=== PATIENT | male | born 1945 | race Caucasian/White ===

== ENCOUNTER 2020-07-20 07:51 | Day surgery (SDC) | payer MEDICARE ==
[2020-07-20] MEDS ORDERED: fentaNYL 100 MCG/2 ML SDV IV ONE (07:52)
[2020-07-20] MEDS ORDERED: Midazolam 1 MG/ML 2 ML SDV IV ONE (07:52)
[2020-07-20] MEDS ORDERED: Sodium Chloride 0.9% 10 ML Syringe FLUSH PRN (08:00)
[2020-07-20] MEDS ORDERED: Lactated Ringers 1,000 ML IV PRN (08:00)
[2020-07-20] MEDS ORDERED: acetaZOLAMIDE 500 MG Cap.ER PO ONE (10:00)
--- NOTE | 2020-07-21 10:30 | OR ---
DATE OF OPERATION: 07/20/2020 SURGEON: Olya Moreno MD PREOPERATIVE DIAGNOSIS: Visually significant cataract, right eye. POSTOPERATIVE DIAGNOSIS: Visually significant cataract, right eye. PROCEDURES PERFORMED: Phacoemulsification with intraocular lens placement, right eye. ASSISTANTS: None. ANESTHESIA: Local with sedation. COMPLICATIONS: None. BLOOD LOSS: None. IMPLANTS: Zack ACU0T0 24.0 diopter lens implanted. CDE: DESCRIPTION OF PROCEDURE: After risks and benefits were reviewed with the patient, consent was obtained in the preoperative area, and the operative eye was marked with a surgical pen. In the preoperative area, a pledget was used to dilate the pupil consisting of a mixture of phenylephrine 10%, cyclopentolate 2%, moxifloxacin 0.5%, and bupivacaine 0.75%. The patient was taken to the operating room, where a time-out was performed, and the patient was placed under monitored anesthesia care. Topical tetracaine was used for anesthesia. The operative eye was prepped and draped for ophthalmic surgery, and the microscope was brought into position and focused. A paracentesis incision was made, followed by injection of preservative-free 1% lidocaine into the anterior chamber, followed by injection of Viscoat into the anterior chamber. A microkeratome blade was used to make a corneal limbal incision temporally. A cystotome was used to make the beginning of the capsulorrhexis, which was carried around 360 degrees in a curvilinear fashion using Utrata forceps. A Jean cannula with BSS was used to hydrodissect and hydrodelineate the nucleus. The nucleus was removed in a divide and conquer manner using phacoemulsification. Irrigation and aspiration were used to remove the remaining cortical material. Provisc was used to inflate the capsular bag, and a pre-loaded Zack ACU0T0 24.0 diopter lens, serial number [id number] was injected into the capsular bag. A Sinskey hook was used to position and center the lens. Next, irrigation and aspiration was used to remove any remaining viscoelastic and cortical material from the anterior chamber. BSS on a cannula was used to inflate the anterior chamber and hydrate the wound. The wound was checked and found to be watertight. 1 mg of Moxifloxacin was injected into the anterior chamber. Drapes were removed and the eye was cleaned. A drop of brimonidine 0.2% and a drop of TobraDex was placed. The eye was shielded, and the patient was taken to the recovery room in stable condition. /[id number] TIAN/INES
== END 2020-07-20 10:15 | disposition home or self-care (01) ==
LOC: FB.SDS 07:51
PROVIDERS: ATTEND Ophthalmology
DX: H25.13 Age-related nuclear cataract, bilateral (principal); H35.362 Drusen (degenerative) of macula, left eye; H35.033 Hypertensive retinopathy, bilateral; H02.831 Dermatochalasis of right upper eyelid; H02.834 Dermatochalasis of left upper eyelid; H52.223 Regular astigmatism, bilateral; I25.10 Atherosclerotic heart disease of native coronary artery without angina pectoris; J44.9 Chronic obstructive pulmonary disease, unspecified; Z79.899 Other long term (current) drug therapy; I10 Essential (primary) hypertension
CPT/HCPCS: 00142-QZ; A9270-GY; J2250; J3010; V2632

== ENCOUNTER → 2020-08-03 | Day surgery (SDC) | payer MEDICARE ==
[~2020-08-03] MED LIST: Lactated Ringers 1,000 ML IV PRN; Midazolam 1 MG/ML 2 ML SDV IV ONE; Sodium Chloride 0.9% 10 ML Syringe FLUSH PRN; acetaZOLAMIDE 500 MG Cap.ER PO ONE; fentaNYL 100 MCG/2 ML SDV IV ONE
--- NOTE | 2020-08-04 10:07 | OR ---
DATE OF OPERATION: 08/03/2020 SURGEON: Olya Moreno MD PREOPERATIVE DIAGNOSIS: Visually significant cataract, left eye. POSTOPERATIVE DIAGNOSIS: Visually significant cataract, left eye. PROCEDURES PERFORMED: Phacoemulsification with intraocular lens placement, left eye. ASSISTANTS: None. ANESTHESIA: Local with sedation. COMPLICATIONS: None. BLOOD LOSS: None. IMPLANTS: Zack ACU0T0 25.0 Diopter lens implanted. CDE: 11.34. DESCRIPTION OF PROCEDURE: After risks and benefits were reviewed with the patient, consent was obtained in the preoperative area, and the operative eye was marked with a surgical pen. In the preoperative area, a pledget was used to dilate the pupil consisting of a mixture of phenylephrine 10%, cyclopentolate 2%, moxifloxacin 0.5%, and bupivacaine 0.75%. The patient was taken to the operating room, where a time-out was performed, and the patient was placed under monitored anesthesia care. Topical tetracaine was used for anesthesia. The operative eye was prepped and draped for ophthalmic surgery, and the microscope was brought into position and focused. A paracentesis incision was made, followed by injection of preservative-free 1% lidocaine into the anterior chamber, followed by injection of Viscoat into the anterior chamber. A microkeratome blade was used to make a corneal limbal incision temporally. A cystotome was used to make the beginning of the capsulorrhexis, which was carried around 360 degrees in a curvilinear fashion using Utrata forceps. A Jean cannula with BSS was used to hydrodissect and hydrodelineate the nucleus. The nucleus was removed in a divide and conquer manner using phacoemulsification. Irrigation and aspiration were used to remove the remaining cortical material. Provisc was used to inflate the capsular bag, and a pre-loaded Zack ACU0T0 25.0 diopter lens, serial number [id number] was injected into the capsular bag. A Sinskey hook was used to position and center the lens. Next, irrigation and aspiration was used to remove any remaining viscoelastic and cortical material from the anterior chamber. BSS on a cannula was used to inflate the anterior chamber and hydrate the wound. The wound was checked and found to be watertight. 1 mg of Moxifloxacin was injected into the anterior chamber. Drapes were removed and the eye was cleaned. A drop of brimonidine 0.2% and a drop of TobraDex was placed. The eye was shielded, and the patient was taken to the recovery room in stable condition. /[id number] TIAN/INES
== END ==
LOC: FB.SDS 10:13
PROVIDERS: ATTEND Ophthalmology
DX: H25.13 Age-related nuclear cataract, bilateral (principal); H35.362 Drusen (degenerative) of macula, left eye; H35.033 Hypertensive retinopathy, bilateral; H02.831 Dermatochalasis of right upper eyelid; H02.834 Dermatochalasis of left upper eyelid; H52.223 Regular astigmatism, bilateral; I25.10 Atherosclerotic heart disease of native coronary artery without angina pectoris; I10 Essential (primary) hypertension; J44.9 Chronic obstructive pulmonary disease, unspecified; Z79.82 Long term (current) use of aspirin; Z79.899 Other long term (current) drug therapy
CPT/HCPCS: 00142; 66984; A9270; J2250; J3010; V2632

== ENCOUNTER 2021-03-16 22:26 | Emergency (ER) | payer MEDICARE, SELFPAY ==
--- NOTE | 2021-03-16 22:58 | EDM.PDOC ---
ED HPI GENERAL MEDICAL PROBLEM - General Chief Complaint: Flank Pain Stated Complaint: kidney stone Time Seen by Provider: 03/16/21 22:50 Source of Information: Reports: Patient History Limitations: Reports: No Limitations - History of Present Illness INITIAL COMMENTS - FREE TEXT/NARRATIVE: 75-year-old male who reports at approximately 5:30 PM tonight he developed acute onset of sharp severe pain in his left flank area and it then moved to his left mid back and it did not appear to have any inciting event. There were no exacerbating or alleviating factors. No nausea or vomiting. The pain was an 8/10. Had no antecedent problems. He had been eating and drinking normally. In fact, he reports that he had just eaten prior to this. He states the pain was very similar to when he had a kidney stone on the right side about 8-9 years ago. He reports he had some leftover hydrocodone from that and he took hydrocodone and at approximately 9:[address] to [address] over here as he was being driven by his sons, the pain went away. Now, he reports the pain as a 0/10 and he has since. The urine provided by him did appear to be a little dark and red tinged. He had had no fevers or chills. No dysuria or hematuria prior to this. Normal bowel movements. There are no other associated signs or symptoms. There are no other modifying factors. 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(s) (Hydrocodone) flank Pain Score (Numeric/FACES): 0 - Related Data Allergies Allergy/AdvReac Type Severity Reaction Status Date / Time No Known Allergies Allergy Verified 03/16/21 22:52 Home Meds: Home Meds Albuterol [Ventolin HFA] 2 puff INH Q4H PRN 07/16/20 [History] Aspirin 81 mg PO DAILY 07/16/20 [History] Clopidogrel [Plavix] 75 mg PO DAILY 07/16/20 [History] Losartan [Cozaar] 25 mg PO BID 07/16/20 [History] Rosuvastatin [Crestor] 20 mg PO DAILY 07/16/20 [History] Past Medical History HEENT History: Reports: Cataract, Impaired Vision Cardiovascular History: Reports: Heart Valve Replacement (Bovine), High Cholesterol, Hypertension, Other (See Below) (LBBB) Respiratory History: Reports: COPD Genitourinary History: Reports: Renal Calculus Dermatologic History: Reports: Venous Stasis Dermatitis - Past Surgical History HEENT Surgical History: Reports: Cataract Surgery Cardiovascular Surgical History: Reports: Coronary Artery Stent, Percutaneous Transluminal Angioplasty, Valve Replacement, Other (See Below) Other Cardiovascular Surgeries/Procedures: AORTIC VALVE REPLACEMENT - BIOPROSTHETIC Musculoskeletal Surgical History: Reports: Arthroscopic Knee (Right knee) Social & Family History - Tobacco Use Tobacco Use Status *Q: Former Tobacco User (Quit in 2015 but was a heavy smoker prior to this.) - Caffeine Use Caffeine Use: Reports: Soda - Alcohol Use Alcohol Use History: No - Living Situation & Occupation Occupation: Retired (July 2020 from [employer]) ED ROS GENERAL - Review of Systems Review Of Systems: See Below Constitutional: Denies: Fever, Chills HEENT: Reports: Other (Nasal congestion). Denies: Throat Pain Respiratory: Denies: Shortness of Breath, Cough Cardiovascular: Denies: Chest Pain, Palpitations GI/Abdominal: Denies: Nausea, Vomiting : Reports: Flank Pain (Left) Musculoskeletal: Reports: Back Pain (left mid back) Skin: Denies: Diaphoresis, Rash Neurological: Denies: Dizziness, Headache Hematologic/Lymphatic: Reports: Easy Bleeding, Easy Bruising (Patient is on Plavix.) ED EXAM, GENERAL - Physical Exam Exam: See Below Exam Limited By: No Limitations General Appearance: Alert, No Apparent Distress, Obese Eye Exam: Bilateral Eye: EOMI, Normal Inspection (Sclera are anicteric) Ears: Normal External Exam, Hearing Grossly Normal Ear Exam: Bilateral Ear: Auricle Normal Nose: Normal Inspection, Normal Mucosa, No Blood Throat/Mouth: Normal Inspection, Normal Oropharynx, Normal Voice, No Airway Compromise Head: Atraumatic, Normocephalic Neck: Normal Inspection, Supple, Non-Tender, Full Range of Motion Respiratory/Chest: No Respiratory Distress, Lungs Clear, Normal Breath Sounds, No Accessory Muscle Use, Chest Non-Tender Cardiovascular: Normal Peripheral Pulses, Regular Rate, Rhythm, No Gallop Peripheral Pulses: 2+: Radial (L), Radial (R) GI/Abdominal: Normal Bowel Sounds, Soft, Non-Tender, No Mass Back Exam: Normal Inspection. No: CVA Tenderness (R), CVA Tenderness (L) Extremities: Normal Range of Motion, Non-Tender, Normal Capillary Refill Neurological: Alert, Oriented, CN II-XII Intact, Normal Cognition, No Motor/Sensory Deficits Psychiatric: Normal Affect Skin Exam: Warm, Dry, Intact, Normal Color, No Rash Course - Vital Signs Last Recorded V/S: Last Vital Signs Temp 36.6 C 03/16/21 22:35 Pulse 78 03/17/21 00:30 Resp 20 03/17/21 00:30 BP 156/77 H 03/17/21 00:30 Pulse Ox 97 03/17/21 00:30 - Orders/Labs/Meds Orders: Active Orders 24 hr Category Date Time Status Abdomen Pelvis wo Cont [CT] Stat Exams 03/16/21 23:08 Ordered Labs: Laboratory Tests 03/16/21 03/16/21 03/16/21 Range/Units 22:44 23:28 23:28 WBC 13.5 H (3.2-10.1) x10-3/uL RBC 4.27 (3.90-5.90) x10(6)uL Hgb 13.1 (12.9-17.7) g/dL Hct 40.8 (38.3-50.1) % MCV 95.6 (80.8-98.7) fL MCH 30.7 (27.0-33.3) pg MCHC 32.1 (28.7-35.3) g/dL RDW 15.5 H (12.4-15.0) % Plt Count 167 (117-477) x10(3)uL MPV 8.3 (6.7-11.0) fL Neut % (Auto) 80.9 H (40.3-71.8) % Lymph % (Auto) 13.1 L (15.8-45.3) % Crawford % (Auto) 5.6 (5.5-15.2) % Eos % (Auto) 0.1 (0.1-6.8) % Baso % (Auto) 0.3 (0.3-3.8) % Neut # (Auto) 11.0 H (1.7-6.9) x10-3/uL Lymph # (Auto) 1.8 (0.5-4.5) x10-3/uL Crawford # (Auto) 0.8 (0.0-1.2) x10-3/uL Eos # (Auto) 0.0 (0.0-0.6) x10-3/uL Baso # (Auto) 0.0 (0.0-0.3) x10-3/uL Sodium 140 (135-145) mmol/L Potassium 4.7 (3.5-5.3) mmol/L Chloride 106 (100-110) mmol/L Carbon Dioxide 24 (21-32) mmol/L BUN 15 (7-18) mg/dL Creatinine 1.7 H (0.70-1.30) mg/dL Est Cr Clr Drug Dosing 36.97 mL/min Estimated GFR (MDRD) 39 L (>60) BUN/Creatinine Ratio 8.8 L (9-20) Glucose 154 H (80-116) mg/dL Calcium 8.9 (8.6-10.2) mg/dL Urine Color Brown (YELLOW) Urine Appearance Slightly cloudy (CLEAR) Urine pH 5.0 (5.0-6.5) Ur Specific Hiko 1.025 (1.010-1.025) Urine Protein 100 H (NEGATIVE) mg/dL Urine Glucose (UA) Normal (NORMAL) mg/dL Urine Ketones Negative (NEGATIVE) mg/dL Urine Occult Blood Large H (NEGATIVE) Urine Nitrite Negative (NEGATIVE) Urine Bilirubin Small H (NEGATIVE) Urine Urobilinogen 1 H (NEGATIVE) mg/dL Ur Leukocyte Esterase Negative (NEGATIVE) Urine RBC 50-75 H (0-5) Urine WBC 0-5 (0-5) Ur Squamous Epith Cells Rare (NS,R,O) Urine Bacteria Few H (NS) - Radiology Interpretation Free Text/Narrative:: CT scan of the abdomen and pelvis shows a nonobstructing renal stone in the lower pole of the right kidney. Is colonic diverticulosis without evidence of diverticulitis. There is nonspecific bilateral inguinal lymphadenopathy. This was per the [facility] radiologist. - Re-Assessments/Exams Free Text/Narrative Re-Assessment/Exam: 03/16/21 23:45: Patient remains pain-free. He is going over to CT scan for a noncontrasted CT scan of his abdomen and pelvis. His white blood cell count 13.5. His hemoglobin is 13.1. His platelet counts 167K. sodium is 140. Potassium is 4.7. Bicarbonate was 24. BUN is 15 and creatinine is 1.7. Glucose is 154. Urinalysis has 50-75 red blood cells per high-powered field and 0-5 white blood cells per HPF. 03/17/21 00:25: CT scan of the abdomen and pelvis showed no evidence of renal stone. There was no hydronephrosis. He did have blood in his urine and signs and symptoms consistent with renal colic. I think he had a stone that he has passed. The patient's creatinine is 1.7. I informed him of this and he will need follow-up with his primary doctor in regard to this. His blood pressure is much improved from his initial blood pressure reading. He apparently had stopped taking part of his blood pressure medications. He was advised to take his blood pressure medicines as prescribed by his doctor. He is stable for discharge at this point and precautions and reasons for return to the emergency department were discussed with the patient while he was in the emergency department and were detailing the patient's discharge instructions. Departure - Departure Time of Disposition: 00:33 Disposition: Home, Self-Care 01 Condition: Good Clinical Impression: Renal colic on left side, Renal insufficiency - Discharge Information Instructions: Renal Colic, [id number], Flank Pain, Adult, [id number] Referrals: David Pedraza, [Primary Care Provider] - Forms: ED Department Discharge Additional Instructions: Your blood tests were reassuring except for an elevated creatinine at 1.7. This means that your kidneys are not working as well as they haven't in the past. This is something that he will need to follow-up with your primary doctor about. Your urine test did show evidence of blood The there was no evidence of infection. The CT scan of your abdomen and pelvis showed no blocking kidney stones. He did have a stone in your right kidney but you may have had a stone on the left side but it has passed.you should increase your fluid intake. Follow-up with your primary doctor. Back to the emergency department for marked increase in pain, fever, inability to urinate or any other concerning signs or symptoms. Sepsis Event Note (ED) - Focused Exam Vital Signs: Vital Signs Temp Pulse Resp BP Pulse Ox 03/17/21 00:30 78 20 156/77 H 97 03/16/21 22:35 36.6 C 86 20 199/93 H 93 L - My Orders Last 24 Hours: My Active Orders 03/16/21 23:08 Abdomen Pelvis wo Cont [CT] Stat - Assessment/Plan Last 24 Hours: My Active Orders 03/16/21 23:08 Abdomen Pelvis wo Cont [CT] Stat
== END 2021-03-17 00:25 | disposition home or self-care (01) ==
LOC: FB.ED 22:26
DX: N23 Unspecified renal colic (principal); N28.9 Disorder of kidney and ureter, unspecified; J44.9 Chronic obstructive pulmonary disease, unspecified; Z79.82 Long term (current) use of aspirin; Z79.02 Long term (current) use of antithrombotics/antiplatelets; Z79.899 Other long term (current) drug therapy; Z87.891 Personal history of nicotine dependence
CPT/HCPCS: 36415; 74176; 80048; 81001; 85025; 99284-25

== ENCOUNTER 2021-11-20 16:15 | Inpatient (IN) | payer MEDICARE, OTHER, SELFPAY ==
[2021-11-20 16:59] LABS: ESTIMATED GFR 44 mL/min (>60)
[2021-11-20] MEDS ORDERED: Acetaminophen 500 MG Tab PO ONE (19:10)
[2021-11-20] MEDS ORDERED: Albuterol/Ipratropium 3.0-0.5 MG/3 ML Neb Soln NEB ONE (19:14)
[2021-11-20] MEDS ORDERED: Albuterol/Ipratropium 3.0-0.5 MG/3 ML Neb Soln ONE (19:15)
[2021-11-20] MEDS: Piperacillin/Tazobactam 4.5 GM in Sodium Chloride 0.9% 100 ML IV SCH (19:17)
[2021-11-20] MEDS ORDERED: Albuterol/Ipratropium 3.0-0.5 MG/3 ML Neb Soln NEB PRN (19:25)
[2021-11-20] MEDS ORDERED: Ondansetron 4 MG/2 ML SDV IV PRN (19:25)
[2021-11-20] MEDS: Sodium Chloride 0.9% 1,000 ML IV SCH (19:35)
[2021-11-20] MEDS ORDERED: Albuterol 8 GM Inhaler INH PRN (19:35)
[2021-11-20] MEDS: Enoxaparin 40 MG/0.4 ML Syringe SUBCUT SCH (21:04)
[2021-11-20] MEDS: Losartan 25 MG Tab PO SCH (22:52)
[2021-11-21] MEDS: Piperacillin/Tazobactam 4.5 GM in Sodium Chloride 0.9% 100 ML IV SCH ×4 (01:41→19:15)
[2021-11-21] MEDS: Acetaminophen 325 MG Tab PO PRN (04:18)
[2021-11-21] MEDS: Sodium Chloride 0.9% 1,000 ML IV SCH (06:30)
[2021-11-21 07:29] LABS: ESTIMATED GFR 38 mL/min (>60)
[2021-11-21] MEDS ORDERED: Aspirin 81 MG Tab.Chew PO SCH (09:00)
[2021-11-21] MEDS ORDERED: Rosuvastatin 20 MG Tab PO SCH (09:00)
[2021-11-21] MEDS ORDERED: Clopidogrel 75 MG Tab PO SCH (09:00)
[2021-11-21 09:08] LABS: HEMOGLOBIN A1C 5.7 % (<5.7)
[2021-11-21] MEDS: Losartan 25 MG Tab PO SCH ×2 (09:28→10:23)
[2021-11-21] MEDS: methylPREDNISolone Sodium Succinate 125 MG/2 ML SDV IVPUSH SCH ×2 (10:35→17:03)
[2021-11-21] MEDS: Enoxaparin 40 MG/0.4 ML Syringe SUBCUT SCH (20:11)
[2021-11-22] MEDS: methylPREDNISolone Sodium Succinate 125 MG/2 ML SDV IVPUSH SCH ×3 (00:22→17:36)
[2021-11-22] MEDS: Piperacillin/Tazobactam 4.5 GM in Sodium Chloride 0.9% 100 ML IV SCH ×4 (00:23→18:33)
[2021-11-22] MEDS: Sodium Chloride 0.9% 10 ML Syringe FLUSH PRN ×6 (03:10→13:13)
[2021-11-22 07:39] LABS: ESTIMATED GFR 44 mL/min (>60)
[2021-11-22] MEDS: Clopidogrel 75 MG Tab PO SCH ×2 (14:20→16:20)
[2021-11-22] MEDS: Aspirin 81 MG Tab.Chew PO SCH ×2 (14:20→16:20)
[2021-11-22] MEDS: Losartan 25 MG Tab PO SCH ×2 (14:20→16:20)
[2021-11-22] MEDS: Enoxaparin 40 MG/0.4 ML Syringe SUBCUT SCH (18:32)
[2021-11-23] MEDS: Piperacillin/Tazobactam 4.5 GM in Sodium Chloride 0.9% 100 ML IV SCH ×4 (00:56→18:46)
[2021-11-23] MEDS: Sodium Chloride 0.9% 10 ML Syringe FLUSH PRN ×5 (02:02→18:45)
[2021-11-23] MEDS: methylPREDNISolone Sodium Succinate 125 MG/2 ML SDV IVPUSH SCH ×3 (02:05→17:04)
[2021-11-23 07:27] LABS: ESTIMATED GFR 62 mL/min (>60)
[2021-11-23] MEDS: Albuterol/Ipratropium 3.0-0.5 MG/3 ML Neb Soln NEB SCH ×3 (10:13→21:14)
[2021-11-23] MEDS: Losartan 25 MG Tab PO SCH (16:48)
[2021-11-23] MEDS: Clopidogrel 75 MG Tab PO SCH (16:49)
[2021-11-23] MEDS: Aspirin 81 MG Tab.Chew PO SCH (16:49)
[2021-11-23] MEDS: Enoxaparin 40 MG/0.4 ML Syringe SUBCUT SCH (18:48)
[2021-11-24] MEDS: methylPREDNISolone Sodium Succinate 125 MG/2 ML SDV IVPUSH SCH (00:18)
[2021-11-24] MEDS: Sodium Chloride 0.9% 10 ML Syringe FLUSH PRN (00:20)
[2021-11-24] MEDS: Piperacillin/Tazobactam 4.5 GM in Sodium Chloride 0.9% 100 ML IV SCH ×2 (01:02→06:30)
[2021-11-24] MEDS: Albuterol/Ipratropium 3.0-0.5 MG/3 ML Neb Soln NEB SCH ×4 (04:43→21:23)
[2021-11-24] MEDS: predniSONE 20 MG Tab PO SCH ×2 (09:45→18:47)
[2021-11-24] MEDS: Acetaminophen 325 MG Tab PO PRN ×2 (09:54→21:27)
[2021-11-24] MEDS: Amoxicillin/Clavulanate K 875-125 MG Tab PO SCH ×2 (12:07→21:23)
[2021-11-24] MEDS: Losartan 25 MG Tab PO SCH (16:31)
[2021-11-24] MEDS: Aspirin 81 MG Tab.Chew PO SCH (16:31)
[2021-11-24] MEDS: Clopidogrel 75 MG Tab PO SCH (16:33)
[2021-11-24] MEDS: Enoxaparin 40 MG/0.4 ML Syringe SUBCUT SCH (18:47)
[2021-11-25 06:47] LABS: ESTIMATED GFR 62 mL/min (>60)
[2021-11-25] MEDS: Albuterol/Ipratropium 3.0-0.5 MG/3 ML Neb Soln NEB SCH (06:55)
[2021-11-25] MEDS: Amoxicillin/Clavulanate K 875-125 MG Tab PO SCH (08:15)
[2021-11-25] MEDS: predniSONE 20 MG Tab PO SCH (08:15)
== END 2021-11-25 12:28 | disposition home health service (06) | DRG 191 ==
LOC: FB.ED 16:15 → FB.MS 19:25
PROVIDERS: ADMIT Emergency Medicine; ATTEND Student in an Organized Health Care Education/Training Program
DX: J44.1 Chronic obstructive pulmonary disease with (acute) exacerbation (principal); L03.116 Cellulitis of left lower limb; N39.0 Urinary tract infection, site not specified; L03.115 Cellulitis of right lower limb; I25.10 Atherosclerotic heart disease of native coronary artery without angina pectoris; E66.9 Obesity, unspecified; Z51.5 Encounter for palliative care; R82.71 Bacteriuria; R62.7 Adult failure to thrive; B35.1 Tinea unguium; E78.5 Hyperlipidemia, unspecified; Z20.822 Contact with and (suspected) exposure to COVID-19; R79.1 Abnormal coagulation profile; I12.9 Hypertensive chronic kidney disease with stage 1 through stage 4 chronic kidney disease, or unspecified chronic kidney disease; N18.9 Chronic kidney disease, unspecified; Z79.52 Long term (current) use of systemic steroids; Z68.30 Body mass index [BMI] 30.0-30.9, adult; Z79.01 Long term (current) use of anticoagulants; Z87.442 Personal history of urinary calculi; Z98.42 Cataract extraction status, left eye; Z95.2 Presence of prosthetic heart valve; Z98.41 Cataract extraction status, right eye; Z90.89 Acquired absence of other organs; Z95.5 Presence of coronary angioplasty implant and graft; E78.00 Pure hypercholesterolemia, unspecified; Z85.118 Personal history of other malignant neoplasm of bronchus and lung; Z79.02 Long term (current) use of antithrombotics/antiplatelets; Z98.890 Other specified postprocedural states; Z79.82 Long term (current) use of aspirin; Z79.899 Other long term (current) drug therapy
CPT/HCPCS: 36415; 71045; 80048; 80053; 81001; 82947; 83036; 83605; 83880; 84484; 85025; 85379; 85610; 85730; 86140; 87040; 87086; 93005; 94640; 97161-GP; 97165-GO; A9270-GY; J1650; J2543; J2930; J3490; J7030; J7512; J7620; U0002

== ENCOUNTER 2022-07-17 15:27 | Inpatient (IN) | payer MEDICARE, OTHER ==
[2022-07-17 16:26] LABS: ESTIMATED GFR 62 mL/min (>60)
[2022-07-17] MEDS: Piperacillin/Tazobactam 4.5 GM in Sodium Chloride 0.9% 100 ML IV SCH ×2 (16:35→22:40)
[2022-07-17] MEDS ORDERED: Iopamidol 755 Mg/ML 100 ML Bottle IV ONE (17:57)
[2022-07-17] MEDS ORDERED: Ondansetron 4 MG/2 ML SDV IV PRN (18:58)
[2022-07-17] MEDS ORDERED: Albuterol 8 GM Inhaler INH PRN (19:52)
[2022-07-17] MEDS ORDERED: Rosuvastatin 20 MG Tab PO STA (19:55)
[2022-07-17] MEDS ORDERED: Aspirin 81 MG Tab.Chew PO STA (19:55)
[2022-07-17] MEDS ORDERED: Clopidogrel 75 MG Tab PO ONE (19:55)
[2022-07-17] MEDS ORDERED: Hydrochlorothiazide 25 MG Tab PO STA (19:55)
[2022-07-17] MEDS ORDERED: Clopidogrel 75 MG Tab ONE (22:23)
[2022-07-17] MEDS ORDERED: Hydrochlorothiazide 25 MG Tab ONE (22:23)
[2022-07-17] MEDS ORDERED: Aspirin 81 MG Tab.Chew ONE (22:23)
[2022-07-17] MEDS ORDERED: Enoxaparin 40 MG/0.4 ML Syringe ONE (22:24)
[2022-07-17] MEDS: Enoxaparin 40 MG/0.4 ML Syringe SUBCUT SCH ×2 (22:37→22:43)
[2022-07-17] MEDS: Losartan 25 MG Tab PO SCH (22:39)
[2022-07-17] MEDS: Acetaminophen/HYDROcodone 325-5 MG Tab PO PRN (22:51)
[2022-07-17] MEDS: Sodium Chloride 0.9% 10 ML Syringe FLUSH PRN (23:10)
[2022-07-18] MEDS: Piperacillin/Tazobactam 4.5 GM in Sodium Chloride 0.9% 100 ML IV SCH ×2 (03:46→09:57)
[2022-07-18] MEDS: Sodium Chloride 0.9% 10 ML Syringe FLUSH PRN (04:25)
[2022-07-18 07:20] LABS: ESTIMATED GFR 57 mL/min (>60)
[2022-07-18] MEDS ORDERED: Furosemide 40 MG Tab PO SCH (09:00)
[2022-07-18] MEDS: Losartan 25 MG Tab PO SCH ×2 (10:38→21:44)
[2022-07-18] MEDS: Acetaminophen/HYDROcodone 325-5 MG Tab PO PRN (10:40)
[2022-07-18] MEDS ORDERED: Furosemide 20 MG/2 ML VIAL IVPUSH ONE (11:00)
[2022-07-18] MEDS ORDERED: VANCOmycin 2 GM/400 ML 2 GM in Premix Bag 1 BAG IV ONE (12:00)
[2022-07-18] MEDS: metroNIDAZOLE 500 MG Tab PO SCH ×2 (12:59→21:44)
[2022-07-18] MEDS: Hydrochlorothiazide 25 MG Tab PO SCH (15:10)
[2022-07-18] MEDS: Furosemide 40 MG/4 ML VIAL IVPUSH SCH (15:10)
[2022-07-18] MEDS: Aspirin 81 MG Tab.Chew PO SCH (15:10)
[2022-07-18] MEDS: Clopidogrel 75 MG Tab PO SCH (15:10)
[2022-07-18] MEDS: Rosuvastatin 20 MG Tab PO SCH (15:10)
[2022-07-18] MEDS: Enoxaparin 40 MG/0.4 ML Syringe SUBCUT SCH (18:05)
[2022-07-18] MEDS: Saccharomyces Boulardii (Probiotic) 250 MG Cap PO SCH (21:48)
[2022-07-19 06:57] LABS: ESTIMATED GFR 41 mL/min (>60)
[2022-07-19] MEDS: Furosemide 40 MG/4 ML VIAL IVPUSH SCH (08:36)
[2022-07-19] MEDS: Acetaminophen/HYDROcodone 325-5 MG Tab PO PRN ×3 (08:36→20:39)
[2022-07-19] MEDS: Saccharomyces Boulardii (Probiotic) 250 MG Cap PO SCH ×2 (08:36→20:38)
[2022-07-19] MEDS: metroNIDAZOLE 500 MG Tab PO SCH ×2 (08:36→20:37)
[2022-07-19] MEDS: Losartan 25 MG Tab PO SCH ×2 (08:36→20:37)
[2022-07-19] MEDS: Sodium Chloride 0.9% 10 ML Syringe FLUSH PRN ×2 (08:37→14:39)
[2022-07-19] MEDS: Furosemide 20 MG/2 ML VIAL IVPUSH SCH (14:39)
[2022-07-19] MEDS: Hydrochlorothiazide 25 MG Tab PO SCH (17:27)
[2022-07-19] MEDS: Enoxaparin 40 MG/0.4 ML Syringe SUBCUT SCH ×2 (17:27→20:31)
[2022-07-19] MEDS: Aspirin 81 MG Tab.Chew PO SCH (17:27)
[2022-07-19] MEDS: Rosuvastatin 20 MG Tab PO SCH (17:27)
[2022-07-19] MEDS: Clopidogrel 75 MG Tab PO SCH (17:27)
[2022-07-19] MEDS ORDERED: VANCOmycin 1.25 GM/250 ML 250 ML IV SCH (21:00)
[2022-07-20 06:27] LABS: ESTIMATED GFR 38 mL/min (>60)
[2022-07-20] MEDS: metroNIDAZOLE 500 MG Tab PO SCH (08:28)
[2022-07-20] MEDS: Sodium Chloride 0.9% 10 ML Syringe FLUSH PRN (08:29)
[2022-07-20] MEDS: Saccharomyces Boulardii (Probiotic) 250 MG Cap PO SCH ×2 (08:29→20:31)
[2022-07-20] MEDS ORDERED: Potassium Chloride 20 MEQ Tab.ER PO ONE (09:16)
[2022-07-20] MEDS ORDERED: Zolpidem 5 MG Tab PO PRN (09:17)
[2022-07-20] MEDS: Losartan 25 MG Tab PO SCH ×2 (10:16→20:30)
[2022-07-20] MEDS: Furosemide 20 MG/2 ML VIAL IVPUSH SCH (10:17)
[2022-07-20] MEDS: Amoxicillin/Clavulanate K 875-125 MG Tab PO SCH ×2 (10:18→20:29)
[2022-07-20] MEDS: Doxycycline 100 MG Tab PO SCH ×2 (10:18→20:31)
[2022-07-20] MEDS: Acetaminophen/HYDROcodone 325-5 MG Tab PO PRN ×2 (11:39→20:29)
[2022-07-20] MEDS: Aspirin 81 MG Tab.Chew PO SCH (16:28)
[2022-07-20] MEDS: Hydrochlorothiazide 25 MG Tab PO SCH (16:28)
[2022-07-20] MEDS: Rosuvastatin 20 MG Tab PO SCH (16:29)
[2022-07-20] MEDS: Clopidogrel 75 MG Tab PO SCH (16:30)
[2022-07-20] MEDS: Furosemide 20 MG Tab PO SCH (16:41)
[2022-07-20] MEDS: Enoxaparin 40 MG/0.4 ML Syringe SUBCUT SCH (18:28)
[2022-07-21 07:03] LABS: ESTIMATED GFR 48 mL/min (>60)
[2022-07-21] MEDS: Furosemide 20 MG Tab PO SCH (08:16)
[2022-07-21] MEDS: Losartan 25 MG Tab PO SCH (08:17)
[2022-07-21] MEDS: Doxycycline 100 MG Tab PO SCH (08:17)
[2022-07-21] MEDS: Saccharomyces Boulardii (Probiotic) 250 MG Cap PO SCH (08:18)
[2022-07-21] MEDS: Acetaminophen/HYDROcodone 325-5 MG Tab PO PRN (08:20)
[2022-07-21] MEDS: Amoxicillin/Clavulanate K 875-125 MG Tab PO SCH (08:44)
== END 2022-07-21 13:05 | disposition home health service (06) | DRG 603 ==
LOC: FB.ED 15:27 → FB.MS 18:53
PROVIDERS: ADMIT Family Medicine; ATTEND Student in an Organized Health Care Education/Training Program
DX: L03.116 Cellulitis of left lower limb (principal); N17.9 Acute kidney failure, unspecified; L03.115 Cellulitis of right lower limb; I89.0 Lymphedema, not elsewhere classified; N18.31 Chronic kidney disease, stage 3a; D63.1 Anemia in chronic kidney disease; I87.2 Venous insufficiency (chronic) (peripheral); J44.9 Chronic obstructive pulmonary disease, unspecified; E78.5 Hyperlipidemia, unspecified; B35.1 Tinea unguium; I10 Essential (primary) hypertension; I12.9 Hypertensive chronic kidney disease with stage 1 through stage 4 chronic kidney disease, or unspecified chronic kidney disease; I44.7 Left bundle-branch block, unspecified; I25.10 Atherosclerotic heart disease of native coronary artery without angina pectoris; E78.00 Pure hypercholesterolemia, unspecified; Z79.82 Long term (current) use of aspirin; Z79.01 Long term (current) use of anticoagulants; Z87.442 Personal history of urinary calculi; Z87.891 Personal history of nicotine dependence; Z79.899 Other long term (current) drug therapy; Z95.2 Presence of prosthetic heart valve; Z95.5 Presence of coronary angioplasty implant and graft
CPT/HCPCS: 36415; 73701-50; 80053; 83605; 85025; 86140; 87040; 87070; 99222; 99232; 99239; 99285; A9270-GY; J1650; J1940; J2543; J3370; J3490; J7050; Q9967

== ENCOUNTER 2023-01-11 08:41 | Inpatient (IN) | payer MEDICARE ==
[2023-01-11] MEDS ORDERED: Piperacillin/Tazobactam 3.375 GM in Sodium Chloride 0.9% 50 ML IV STA (10:04)
[2023-01-11] MEDS ORDERED: VANCOmycin 1 GM/200 ML 1 GM in Premix Bag 1 BAG IV ONE (10:04)
[2023-01-11 10:17] LABS: BASOPHILS ABSOLUTE AUTO 0.1 x10-3/uL (0.0-0.3); BASOPHILS PERCENT AUTO 0.5 % (0.3-3.8); EOSINOPHILS ABSOLUTE AUTO 0.1 x10-3/uL (0.0-0.6); EOSINOPHILS PERCENT AUTO 0.4 % (0.1-6.8); HEMATOCRIT 32.1 % (38.3-50.1); HEMOGLOBIN 10.2 g/dL (12.9-17.7); LYMPHOCYTES ABSOLUTE AUTO 1.3 x10-3/uL (0.5-4.5); LYMPHOCYTES PERCENT AUTO 10.1 % (15.8-45.3); MEAN CORPUSCULAR HEMOGLOBIN 28.1 pg (27.0-33.3); MEAN CORPUSCULAR HGB CONC 31.8 g/dL (28.7-35.3); MEAN CORPUSCULAR VOLUME 88.5 fL (80.8-98.7); MEAN PLATELET VOLUME 7.9 fL (6.7-11.0); MONOCYTES ABSOLUTE AUTO 0.5 x10-3/uL (0.0-1.2); PLATELET COUNT,PLT 168 x10(3)uL (117-477); RED BLOOD CELL COUNT 3.63 x10(6)uL (3.90-5.90); WHITE BLOOD CELL COUNT,WBC 12.9 x10-3/uL (3.2-10.1)
[2023-01-11 10:26] LABS: BLOOD UREA NITROGEN,BUN 19 mg/dL (7-18); BUN/CREATININE RATIO 14.6 (9-20); CARBON DIOXIDE,CO2 30 mmol/L (21-32); CHLORIDE,CL 103 mmol/L (100-110); CREATININE 1.3 mg/dL (0.70-1.30); EST CRCL DRUG DOSING (CG) 45.31 mL/min; ESTIMATED GFR 56 mL/min (>60); GLUCOSE RANDOM 120 mg/dL (80-116); POTASSIUM,K 3.9 mmol/L (3.5-5.3); SODIUM,NA 140 mmol/L (135-145)
[2023-01-11 10:32] LABS: A/G RATIO 0.7; ALANINE AMINOTRANSFERASE,ALT 17 U/L (12-36); ALBUMIN 3.3 g/dL (3.2-4.6); ALKALINE PHOSPHATASE 101 IU/L (56-112); ASPARTATE AMNIOTRANSFERASE,AST 15 IU/L (5-25); BILIRUBIN TOTAL 0.6 mg/dL (0.1-1.3); PROTEIN TOTAL,TP 8.2 g/dL (6.0-8.0)
[2023-01-11 10:34] LABS: TROPONIN I 13.7 pg/mL (4.0-60.3)
[2023-01-11 10:35] LABS: LACTIC ACID 1.9 mmol/L (0.4-2.0)
[2023-01-11] MEDS: Acetaminophen/HYDROcodone 325-5 MG Tab PO PRN ×4 (11:18→23:28)
[2023-01-11] MEDS ORDERED: VANCOmycin 1.75 GM/350 ML 1.75 GM in Premix Bag 1 BAG IV ONE (11:30)
[2023-01-11] MEDS ORDERED: Morphine 4 MG/ML VIAL IVPUSH ONE (12:42)
[2023-01-11] MEDS ORDERED: Sodium Chloride 0.9% 1,000 ML IV SCH (12:45)
[2023-01-11] MEDS ORDERED: Albuterol 8 GM Inhaler INH PRN (13:18)
[2023-01-11] MEDS ORDERED: Morphine 2 MG/ML SYRINGE IVPUSH PRN (13:20)
[2023-01-11] MEDS ORDERED: Naloxone 0.4 MG/ML SDV IVPUSH PRN (13:20)
[2023-01-11] MEDS ORDERED: Ondansetron 4 MG/2 ML SDV IVPUSH PRN (13:30)
[2023-01-11] MEDS: Rosuvastatin 20 MG Tab PO SCH (15:56)
[2023-01-11] MEDS: Aspirin 81 MG Tab.Chew PO SCH (15:56)
[2023-01-11] MEDS ORDERED: Metoprolol Succinate 25 MG Tab.ER PO SCH (16:00)
[2023-01-11] MEDS ORDERED: Furosemide 40 MG Tab PO SCH (16:00)
[2023-01-11] MEDS ORDERED: Losartan 25 MG Tab PO SCH (16:00)
[2023-01-11] MEDS: Enoxaparin 40 MG/0.4 ML Syringe SUBCUT SCH (16:14)
[2023-01-11] MEDS: Clopidogrel 75 MG Tab PO SCH (16:17)
[2023-01-11] MEDS: Sodium Chloride 0.9% 10 ML Syringe FLUSH PRN ×3 (16:37→22:02)
[2023-01-11] MEDS: Piperacillin/Tazobactam 3.375 GM in Sodium Chloride 0.9% 50 ML IV SCH ×2 (16:38→22:03)
[2023-01-11] MEDS ORDERED: Piperacillin/Tazobactam 3.375 GM in Sodium Chloride 0.9% 50 ML IV SCH (17:00)
[2023-01-11 17:19] LABS: BILIRUBIN,URINE NEGATIVE (NEGATIVE); GLUCOSE,URINE NORMAL (NORMAL); KETONES,URINE NEGATIVE (NEGATIVE); LEUKOCYTE ESTERASE,URINE NEGATIVE (NEGATIVE); NITRITE,URINE NEGATIVE (NEGATIVE); OCCULT BLOOD,URINE LARGE (NEGATIVE); PROTEIN,URINE NEGATIVE (NEGATIVE); UROBILINOGEN,URINE NORMAL (NEGATIVE)
[2023-01-11 17:21] LABS: APPEARANCE,URINE SLIGHTLY CLOUDY (CLEAR); BACTERIA,URINE OCCASIONAL (NS); COLOR,URINE YELLOW (YELLOW); RBC,URINE 30-40 (0-5); SQUAMOUS EPITHELIAL CELLS,UR OCCASIONAL (NS,R,O); WBC,URINE 0-5 (0-5)
[2023-01-11] MEDS: Ketorolac 15 MG/ML SDV IVPUSH SCH (19:58)
[2023-01-11] MEDS: Saccharomyces Boulardii (Probiotic) 250 MG Cap PO SCH (20:06)
[2023-01-11] MEDS ORDERED: Sennosides/Docusate Sodium 50-8.6 MG Tab PO PRN (21:00)
[2023-01-11] MEDS ORDERED: VANCOmycin 1.5 GM/300 ML 1.5 GM in Premix Bag 1 BAG IV SCH (22:00)
[2023-01-12] MEDS: Ketorolac 15 MG/ML SDV IVPUSH SCH ×4 (04:58→19:43)
[2023-01-12] MEDS: Piperacillin/Tazobactam 3.375 GM in Sodium Chloride 0.9% 50 ML IV SCH ×4 (05:04→22:17)
[2023-01-12] MEDS: Sodium Chloride 0.9% 10 ML Syringe FLUSH PRN ×3 (05:04→22:16)
[2023-01-12 06:44] LABS: BASOPHILS ABSOLUTE AUTO 0.1 x10-3/uL (0.0-0.3); BASOPHILS PERCENT AUTO 0.7 % (0.3-3.8); EOSINOPHILS ABSOLUTE AUTO 0.2 x10-3/uL (0.0-0.6); EOSINOPHILS PERCENT AUTO 2.1 % (0.1-6.8); HEMATOCRIT 24.6 % (38.3-50.1); LYMPHOCYTES ABSOLUTE AUTO 2.2 x10-3/uL (0.5-4.5); LYMPHOCYTES PERCENT AUTO 24.1 % (15.8-45.3); MEAN CORPUSCULAR HEMOGLOBIN 28.9 pg (27.0-33.3); MEAN CORPUSCULAR HGB CONC 32.6 g/dL (28.7-35.3); MEAN CORPUSCULAR VOLUME 88.7 fL (80.8-98.7); MEAN PLATELET VOLUME 8.2 fL (6.7-11.0); MONOCYTES ABSOLUTE AUTO 0.9 x10-3/uL (0.0-1.2); MONOCYTES PERCENT AUTO 9.9 % (5.5-15.2); NEUTROPHILS ABSOLUTE AUTO 5.8 x10-3/uL (1.7-6.9); NEUTROPHILS PERCENT AUTO 63.2 % (40.3-71.8); PLATELET COUNT,PLT 128 x10(3)uL (117-477); RED BLOOD CELL COUNT 2.77 x10(6)uL (3.90-5.90); RED CELL DISTRIBUTION WIDTH 19.8 % (12.4-15.0); WHITE BLOOD CELL COUNT,WBC 9.2 x10-3/uL (3.2-10.1)
[2023-01-12 06:48] LABS: BLOOD UREA NITROGEN,BUN 27 mg/dL (7-18); BUN/CREATININE RATIO 15.9 (9-20); CALCIUM 8.4 mg/dL (8.6-10.2); CARBON DIOXIDE,CO2 27 mmol/L (21-32); CHLORIDE,CL 103 mmol/L (100-110); CREATININE 1.7 mg/dL (0.70-1.30); EST CRCL DRUG DOSING (CG) 34.65 mL/min; ESTIMATED GFR 41 mL/min (>60); GLUCOSE RANDOM 107 mg/dL (80-116); POTASSIUM,K 3.9 mmol/L (3.5-5.3); SODIUM,NA 139 mmol/L (135-145)
[2023-01-12 07:04] LABS: C-REACTIVE PROTEIN 5.82 mg/dL (<0.33)
[2023-01-12] MEDS: Saccharomyces Boulardii (Probiotic) 250 MG Cap PO SCH ×2 (09:04→21:13)
[2023-01-12] MEDS: Enoxaparin 40 MG/0.4 ML Syringe SUBCUT SCH (13:45)
[2023-01-12] MEDS: Acetaminophen/HYDROcodone 325-5 MG Tab PO PRN (16:43)
[2023-01-12] MEDS: Rosuvastatin 20 MG Tab PO SCH (17:00)
[2023-01-12] MEDS: Aspirin 81 MG Tab.Chew PO SCH (17:00)
[2023-01-12] MEDS: Clopidogrel 75 MG Tab PO SCH (17:00)
[2023-01-13] MEDS: Acetaminophen/HYDROcodone 325-5 MG Tab PO PRN (00:14)
[2023-01-13] MEDS: Ketorolac 15 MG/ML SDV IVPUSH SCH ×4 (01:09→20:55)
[2023-01-13] MEDS: Sodium Chloride 0.9% 10 ML Syringe FLUSH PRN ×7 (01:09→22:41)
[2023-01-13] MEDS: Piperacillin/Tazobactam 3.375 GM in Sodium Chloride 0.9% 50 ML IV SCH ×4 (05:41→22:42)
[2023-01-13 06:22] LABS: BASOPHILS ABSOLUTE AUTO 0.1 x10-3/uL (0.0-0.3); BASOPHILS PERCENT AUTO 0.9 % (0.3-3.8); EOSINOPHILS ABSOLUTE AUTO 0.5 x10-3/uL (0.0-0.6); EOSINOPHILS PERCENT AUTO 5.4 % (0.1-6.8); HEMATOCRIT 22.5 % (38.3-50.1); HEMOGLOBIN 7.3 g/dL (12.9-17.7); LYMPHOCYTES ABSOLUTE AUTO 1.6 x10-3/uL (0.5-4.5); LYMPHOCYTES PERCENT AUTO 18.2 % (15.8-45.3); MEAN CORPUSCULAR HEMOGLOBIN 28.9 pg (27.0-33.3); MEAN CORPUSCULAR HGB CONC 32.5 g/dL (28.7-35.3); MONOCYTES ABSOLUTE AUTO 0.8 x10-3/uL (0.0-1.2); MONOCYTES PERCENT AUTO 8.6 % (5.5-15.2); NEUTROPHILS ABSOLUTE AUTO 6.1 x10-3/uL (1.7-6.9); NEUTROPHILS PERCENT AUTO 66.9 % (40.3-71.8); PLATELET COUNT,PLT 118 x10(3)uL (117-477); RED BLOOD CELL COUNT 2.52 x10(6)uL (3.90-5.90); RED CELL DISTRIBUTION WIDTH 19.8 % (12.4-15.0); WHITE BLOOD CELL COUNT,WBC 9.1 x10-3/uL (3.2-10.1)
[2023-01-13 06:28] LABS: BLOOD UREA NITROGEN,BUN 25 mg/dL (7-18); BUN/CREATININE RATIO 16.7 (9-20); CALCIUM 8.1 mg/dL (8.6-10.2); CARBON DIOXIDE,CO2 27 mmol/L (21-32); CHLORIDE,CL 104 mmol/L (100-110); CREATININE 1.5 mg/dL (0.70-1.30); EST CRCL DRUG DOSING (CG) 39.27 mL/min; ESTIMATED GFR 47 mL/min (>60); GLUCOSE RANDOM 110 mg/dL (80-116); POTASSIUM,K 3.9 mmol/L (3.5-5.3); SODIUM,NA 138 mmol/L (135-145)
[2023-01-13] MEDS: Saccharomyces Boulardii (Probiotic) 250 MG Cap PO SCH ×2 (10:30→20:56)
[2023-01-13] MEDS: Enoxaparin 40 MG/0.4 ML Syringe SUBCUT SCH (14:04)
[2023-01-13] MEDS: Aspirin 81 MG Tab.Chew PO SCH (17:11)
[2023-01-13] MEDS: Rosuvastatin 20 MG Tab PO SCH (17:11)
[2023-01-14] MEDS: Sodium Chloride 0.9% 10 ML Syringe FLUSH PRN ×5 (02:31→23:18)
[2023-01-14] MEDS: Ketorolac 15 MG/ML SDV IVPUSH SCH ×4 (02:32→18:56)
[2023-01-14 03:38] LABS: BILIRUBIN,URINE SMALL (NEGATIVE); GLUCOSE,URINE NORMAL (NORMAL); KETONES,URINE NEGATIVE (NEGATIVE); LEUKOCYTE ESTERASE,URINE SMALL (NEGATIVE); NITRITE,URINE POSITIVE (NEGATIVE); OCCULT BLOOD,URINE LARGE (NEGATIVE); PROTEIN,URINE 500 mg/dL (NEGATIVE); UROBILINOGEN,URINE NORMAL (NEGATIVE)
[2023-01-14 04:02] LABS: APPEARANCE,URINE CLOUDY (CLEAR); BACTERIA,URINE FEW (NS); COLOR,URINE RED (YELLOW); RBC,URINE PACKED (0-5); SQUAMOUS EPITHELIAL CELLS,UR OCCASIONAL (NS,R,O); WBC,URINE 0-5 (0-5)
[2023-01-14] MEDS: Piperacillin/Tazobactam 3.375 GM in Sodium Chloride 0.9% 50 ML IV SCH ×4 (05:39→23:19)
[2023-01-14 06:49] LABS: BASOPHILS ABSOLUTE AUTO 0.1 x10-3/uL (0.0-0.3); EOSINOPHILS ABSOLUTE AUTO 0.6 x10-3/uL (0.0-0.6); EOSINOPHILS PERCENT AUTO 9.3 % (0.1-6.8); LYMPHOCYTES ABSOLUTE AUTO 1.7 x10-3/uL (0.5-4.5); LYMPHOCYTES PERCENT AUTO 25.2 % (15.8-45.3); MEAN CORPUSCULAR HGB CONC 32.4 g/dL (28.7-35.3); MEAN CORPUSCULAR VOLUME 89.6 fL (80.8-98.7); MEAN PLATELET VOLUME 8.2 fL (6.7-11.0); MONOCYTES ABSOLUTE AUTO 0.6 x10-3/uL (0.0-1.2); MONOCYTES PERCENT AUTO 9.1 % (5.5-15.2); NEUTROPHILS ABSOLUTE AUTO 3.6 x10-3/uL (1.7-6.9); NEUTROPHILS PERCENT AUTO 55.4 % (40.3-71.8); PLATELET COUNT,PLT 115 x10(3)uL (117-477); RED BLOOD CELL COUNT 2.33 x10(6)uL (3.90-5.90); RED CELL DISTRIBUTION WIDTH 20.4 % (12.4-15.0); WHITE BLOOD CELL COUNT,WBC 6.6 x10-3/uL (3.2-10.1)
[2023-01-14 07:09] LABS: HEMATOCRIT 20.8 % (38.3-50.1); HEMOGLOBIN 6.8 g/dL (12.9-17.7)
[2023-01-14] MEDS ORDERED: Sodium Chloride 0.9% 250 ML IV SCH (08:00)
[2023-01-14] MEDS: Saccharomyces Boulardii (Probiotic) 250 MG Cap PO SCH ×2 (08:32→20:34)
[2023-01-14] MEDS: Rosuvastatin 20 MG Tab PO SCH (17:07)
[2023-01-15] MEDS: Ketorolac 15 MG/ML SDV IVPUSH SCH ×4 (02:28→19:54)
[2023-01-15] MEDS: Sodium Chloride 0.9% 10 ML Syringe FLUSH PRN ×8 (02:28→19:56)
[2023-01-15] MEDS: Piperacillin/Tazobactam 3.375 GM in Sodium Chloride 0.9% 50 ML IV SCH ×4 (05:16→23:18)
[2023-01-15 06:45] LABS: BASOPHILS ABSOLUTE AUTO 0.1 x10-3/uL (0.0-0.3); BASOPHILS PERCENT AUTO 0.9 % (0.3-3.8); EOSINOPHILS ABSOLUTE AUTO 0.7 x10-3/uL (0.0-0.6); EOSINOPHILS PERCENT AUTO 9.6 % (0.1-6.8); HEMATOCRIT 24.6 % (38.3-50.1); HEMOGLOBIN 8.2 g/dL (12.9-17.7); LYMPHOCYTES ABSOLUTE AUTO 1.7 x10-3/uL (0.5-4.5); LYMPHOCYTES PERCENT AUTO 24.7 % (15.8-45.3); MEAN CORPUSCULAR HEMOGLOBIN 29.7 pg (27.0-33.3); MEAN CORPUSCULAR HGB CONC 33.4 g/dL (28.7-35.3); MEAN CORPUSCULAR VOLUME 88.9 fL (80.8-98.7); MEAN PLATELET VOLUME 8.4 fL (6.7-11.0); MONOCYTES ABSOLUTE AUTO 0.7 x10-3/uL (0.0-1.2); MONOCYTES PERCENT AUTO 10.3 % (5.5-15.2); NEUTROPHILS ABSOLUTE AUTO 3.7 x10-3/uL (1.7-6.9); NEUTROPHILS PERCENT AUTO 54.5 % (40.3-71.8); PLATELET COUNT,PLT 124 x10(3)uL (117-477); RED BLOOD CELL COUNT 2.77 x10(6)uL (3.90-5.90); WHITE BLOOD CELL COUNT,WBC 6.8 x10-3/uL (3.2-10.1)
[2023-01-15 06:55] LABS: BLOOD UREA NITROGEN,BUN 22 mg/dL (7-18); BUN/CREATININE RATIO 16.9 (9-20); CALCIUM 8.4 mg/dL (8.6-10.2); CARBON DIOXIDE,CO2 28 mmol/L (21-32); CHLORIDE,CL 107 mmol/L (100-110); CREATININE 1.3 mg/dL (0.70-1.30); EST CRCL DRUG DOSING (CG) 45.31 mL/min; ESTIMATED GFR 56 mL/min (>60); GLUCOSE RANDOM 106 mg/dL (80-116); POTASSIUM,K 3.5 mmol/L (3.5-5.3); SODIUM,NA 143 mmol/L (135-145)
[2023-01-15] MEDS: Saccharomyces Boulardii (Probiotic) 250 MG Cap PO SCH ×2 (08:50→20:00)
[2023-01-15] MEDS: Rosuvastatin 20 MG Tab PO SCH (16:44)
[2023-01-15] MEDS: Acetaminophen/HYDROcodone 325-5 MG Tab PO PRN (23:48)
[2023-01-16] MEDS: Piperacillin/Tazobactam 3.375 GM in Sodium Chloride 0.9% 50 ML IV SCH ×4 (04:43→22:26)
[2023-01-16 06:40] LABS: BASOPHILS ABSOLUTE AUTO 0.1 x10-3/uL (0.0-0.3); EOSINOPHILS ABSOLUTE AUTO 0.7 x10-3/uL (0.0-0.6); EOSINOPHILS PERCENT AUTO 9.8 % (0.1-6.8); HEMATOCRIT 25.3 % (38.3-50.1); HEMOGLOBIN 8.2 g/dL (12.9-17.7); LYMPHOCYTES ABSOLUTE AUTO 1.7 x10-3/uL (0.5-4.5); LYMPHOCYTES PERCENT AUTO 25.4 % (15.8-45.3); MEAN CORPUSCULAR HEMOGLOBIN 29.2 pg (27.0-33.3); MEAN CORPUSCULAR HGB CONC 32.4 g/dL (28.7-35.3); MEAN CORPUSCULAR VOLUME 90.2 fL (80.8-98.7); MEAN PLATELET VOLUME 8.1 fL (6.7-11.0); MONOCYTES ABSOLUTE AUTO 0.7 x10-3/uL (0.0-1.2); MONOCYTES PERCENT AUTO 10.2 % (5.5-15.2); NEUTROPHILS ABSOLUTE AUTO 3.6 x10-3/uL (1.7-6.9); NEUTROPHILS PERCENT AUTO 53.6 % (40.3-71.8); PLATELET COUNT,PLT 145 x10(3)uL (117-477); RED CELL DISTRIBUTION WIDTH 19.1 % (12.4-15.0); WHITE BLOOD CELL COUNT,WBC 6.8 x10-3/uL (3.2-10.1)
[2023-01-16 06:46] LABS: BLOOD UREA NITROGEN,BUN 19 mg/dL (7-18); BUN/CREATININE RATIO 12.7 (9-20); CALCIUM 8.5 mg/dL (8.6-10.2); CARBON DIOXIDE,CO2 28 mmol/L (21-32); CHLORIDE,CL 108 mmol/L (100-110); CREATININE 1.5 mg/dL (0.70-1.30); EST CRCL DRUG DOSING (CG) 39.27 mL/min; ESTIMATED GFR 47 mL/min (>60); GLUCOSE RANDOM 104 mg/dL (80-116); POTASSIUM,K 3.7 mmol/L (3.5-5.3); SODIUM,NA 143 mmol/L (135-145)
[2023-01-16] MEDS: Saccharomyces Boulardii (Probiotic) 250 MG Cap PO SCH ×2 (07:59→20:35)
[2023-01-16] MEDS ORDERED: Sodium Chloride 0.9% 500 ML IV ONE (10:55)
[2023-01-16] MEDS: Acetaminophen/HYDROcodone 325-5 MG Tab PO PRN ×2 (10:58→19:38)
[2023-01-16] MEDS ORDERED: Iopamidol 755 Mg/ML 200 ML Bottle IV ONE (12:15)
[2023-01-16] MEDS: Sodium Chloride 0.9% 10 ML Syringe FLUSH PRN ×3 (13:30→23:43)
[2023-01-16] MEDS: Rosuvastatin 20 MG Tab PO SCH (16:45)
[2023-01-17] MEDS: Acetaminophen/HYDROcodone 325-5 MG Tab PO PRN ×4 (02:23→23:30)
[2023-01-17] MEDS: Piperacillin/Tazobactam 3.375 GM in Sodium Chloride 0.9% 50 ML IV SCH ×4 (04:50→23:31)
[2023-01-17] MEDS: Sodium Chloride 0.9% 10 ML Syringe FLUSH PRN (05:27)
[2023-01-17 06:43] LABS: BASOPHILS ABSOLUTE AUTO 0.1 x10-3/uL (0.0-0.3); EOSINOPHILS ABSOLUTE AUTO 0.6 x10-3/uL (0.0-0.6); EOSINOPHILS PERCENT AUTO 8.9 % (0.1-6.8); HEMATOCRIT 26.1 % (38.3-50.1); HEMOGLOBIN 8.5 g/dL (12.9-17.7); LYMPHOCYTES ABSOLUTE AUTO 1.9 x10-3/uL (0.5-4.5); LYMPHOCYTES PERCENT AUTO 27.5 % (15.8-45.3); MEAN CORPUSCULAR HEMOGLOBIN 29.3 pg (27.0-33.3); MEAN CORPUSCULAR HGB CONC 32.6 g/dL (28.7-35.3); MEAN PLATELET VOLUME 8.2 fL (6.7-11.0); MONOCYTES ABSOLUTE AUTO 0.7 x10-3/uL (0.0-1.2); MONOCYTES PERCENT AUTO 9.9 % (5.5-15.2); NEUTROPHILS ABSOLUTE AUTO 3.7 x10-3/uL (1.7-6.9); NEUTROPHILS PERCENT AUTO 52.7 % (40.3-71.8); PLATELET COUNT,PLT 154 x10(3)uL (117-477); RED BLOOD CELL COUNT 2.89 x10(6)uL (3.90-5.90); RED CELL DISTRIBUTION WIDTH 18.8 % (12.4-15.0); WHITE BLOOD CELL COUNT,WBC 7.1 x10-3/uL (3.2-10.1)
[2023-01-17 07:01] LABS: A/G RATIO 0.6; ALANINE AMINOTRANSFERASE,ALT 21 U/L (12-36); ALBUMIN 2.7 g/dL (3.2-4.6); ALKALINE PHOSPHATASE 81 IU/L (56-112); ASPARTATE AMNIOTRANSFERASE,AST 27 IU/L (5-25); BILIRUBIN TOTAL 1.2 mg/dL (0.1-1.3); BLOOD UREA NITROGEN,BUN 14 mg/dL (7-18); BUN/CREATININE RATIO 11.7 (9-20); CALCIUM 8.5 mg/dL (8.6-10.2); CARBON DIOXIDE,CO2 26 mmol/L (21-32); CHLORIDE,CL 107 mmol/L (100-110); CREATININE 1.2 mg/dL (0.70-1.30); EST CRCL DRUG DOSING (CG) 49.08 mL/min; ESTIMATED GFR 62 mL/min (>60); GLUCOSE RANDOM 93 mg/dL (80-116); POTASSIUM,K 3.7 mmol/L (3.5-5.3); PROTEIN TOTAL,TP 7.5 g/dL (6.0-8.0); SODIUM,NA 142 mmol/L (135-145)
[2023-01-17] MEDS: Saccharomyces Boulardii (Probiotic) 250 MG Cap PO SCH ×2 (09:37→21:58)
[2023-01-17] MEDS: Rosuvastatin 20 MG Tab PO SCH (16:09)
[2023-01-18] MEDS: Piperacillin/Tazobactam 3.375 GM in Sodium Chloride 0.9% 50 ML IV SCH ×2 (05:01→11:25)
[2023-01-18 07:26] LABS: BASOPHILS ABSOLUTE AUTO 0.1 x10-3/uL (0.0-0.3); BASOPHILS PERCENT AUTO 0.7 % (0.3-3.8); EOSINOPHILS ABSOLUTE AUTO 0.6 x10-3/uL (0.0-0.6); EOSINOPHILS PERCENT AUTO 7.6 % (0.1-6.8); HEMATOCRIT 24.3 % (38.3-50.1); HEMOGLOBIN 7.8 g/dL (12.9-17.7); LYMPHOCYTES PERCENT AUTO 26.8 % (15.8-45.3); MEAN CORPUSCULAR HEMOGLOBIN 29.2 pg (27.0-33.3); MEAN CORPUSCULAR HGB CONC 32.3 g/dL (28.7-35.3); MEAN CORPUSCULAR VOLUME 90.6 fL (80.8-98.7); MEAN PLATELET VOLUME 7.9 fL (6.7-11.0); MONOCYTES ABSOLUTE AUTO 0.8 x10-3/uL (0.0-1.2); MONOCYTES PERCENT AUTO 10.9 % (5.5-15.2); NEUTROPHILS ABSOLUTE AUTO 4.1 x10-3/uL (1.7-6.9); PLATELET COUNT,PLT 170 x10(3)uL (117-477); RED BLOOD CELL COUNT 2.68 x10(6)uL (3.90-5.90); RED CELL DISTRIBUTION WIDTH 19.2 % (12.4-15.0); WHITE BLOOD CELL COUNT,WBC 7.5 x10-3/uL (3.2-10.1)
[2023-01-18] MEDS: Saccharomyces Boulardii (Probiotic) 250 MG Cap PO SCH ×2 (08:38→20:08)
[2023-01-18] MEDS: Rosuvastatin 20 MG Tab PO SCH (15:07)
[2023-01-18] MEDS: Formoterol/Mometasone 100-5 MCG 8.8 GM Inhaler IH SCH (20:08)
[2023-01-18] MEDS: Acetaminophen/HYDROcodone 325-5 MG Tab PO PRN (21:51)
[2023-01-19] MEDS: Acetaminophen/HYDROcodone 325-5 MG Tab PO PRN (04:14)
[2023-01-19 06:29] LABS: BASOPHILS ABSOLUTE AUTO 0.1 x10-3/uL (0.0-0.3); BASOPHILS PERCENT AUTO 0.7 % (0.3-3.8); EOSINOPHILS ABSOLUTE AUTO 0.4 x10-3/uL (0.0-0.6); EOSINOPHILS PERCENT AUTO 5.5 % (0.1-6.8); HEMATOCRIT 24.8 % (38.3-50.1); LYMPHOCYTES ABSOLUTE AUTO 1.8 x10-3/uL (0.5-4.5); LYMPHOCYTES PERCENT AUTO 24.4 % (15.8-45.3); MEAN CORPUSCULAR HEMOGLOBIN 29.6 pg (27.0-33.3); MEAN CORPUSCULAR HGB CONC 32.3 g/dL (28.7-35.3); MEAN CORPUSCULAR VOLUME 91.6 fL (80.8-98.7); MEAN PLATELET VOLUME 8.1 fL (6.7-11.0); MONOCYTES ABSOLUTE AUTO 0.8 x10-3/uL (0.0-1.2); MONOCYTES PERCENT AUTO 10.6 % (5.5-15.2); NEUTROPHILS ABSOLUTE AUTO 4.3 x10-3/uL (1.7-6.9); NEUTROPHILS PERCENT AUTO 58.8 % (40.3-71.8); PLATELET COUNT,PLT 177 x10(3)uL (117-477); RED BLOOD CELL COUNT 2.71 x10(6)uL (3.90-5.90); RED CELL DISTRIBUTION WIDTH 19.5 % (12.4-15.0); WHITE BLOOD CELL COUNT,WBC 7.3 x10-3/uL (3.2-10.1)
[2023-01-19] MEDS: Formoterol/Mometasone 100-5 MCG 8.8 GM Inhaler IH SCH (09:08)
[2023-01-19] MEDS: Saccharomyces Boulardii (Probiotic) 250 MG Cap PO SCH (09:08)
== END 2023-01-19 10:47 | disposition swing bed (61) | DRG 563 ==
LOC: FB.ED 08:41 → FB.MS 13:12
PROVIDERS: ADMIT Emergency Medicine; ATTEND Family Medicine
DX: S42.412A Displaced simple supracondylar fracture without intercondylar fracture of left humerus, initial encounter for closed fracture (principal); I13.0 Hypertensive heart and chronic kidney disease with heart failure and stage 1 through stage 4 chronic kidney disease, or unspecified chronic kidney disease; D62 Acute posthemorrhagic anemia; L03.116 Cellulitis of left lower limb; J44.1 Chronic obstructive pulmonary disease with (acute) exacerbation; R31.0 Gross hematuria; Z66 Do not resuscitate; I50.9 Heart failure, unspecified; I48.91 Unspecified atrial fibrillation; R09.02 Hypoxemia; I95.0 Idiopathic hypotension; E78.00 Pure hypercholesterolemia, unspecified; D63.1 Anemia in chronic kidney disease; R91.8 Other nonspecific abnormal finding of lung field; I87.2 Venous insufficiency (chronic) (peripheral); N18.31 Chronic kidney disease, stage 3a; W01.0XXA Fall on same level from slipping, tripping and stumbling without subsequent striking against object, initial encounter; I25.10 Atherosclerotic heart disease of native coronary artery without angina pectoris; Z87.442 Personal history of urinary calculi; Z79.01 Long term (current) use of anticoagulants; Z98.49 Cataract extraction status, unspecified eye; Z79.82 Long term (current) use of aspirin; Z79.899 Other long term (current) drug therapy; Z95.5 Presence of coronary angioplasty implant and graft; Z98.890 Other specified postprocedural states; Z87.891 Personal history of nicotine dependence; Z95.2 Presence of prosthetic heart valve; Y92.89 Other specified places as the place of occurrence of the external cause; Z90.2 Acquired absence of lung [part of]; Z90.89 Acquired absence of other organs
CPT/HCPCS: 36415; 36430; 51798; 71045; 71250; 73030-LT; 73080-LT; 73200-LT; 74178; 80048; 80053; 80202; 81001; 82272; 82550; 83605; 83880; 84484; 85025; 86140; 86850; 86900; 86901; 86920; 86922; 87040; 87070; 93005; 93010; 94150; 97110-GP; 97161-GP; 97165-GO; 97530-GO; 97530-GP; 97535-GO; 99222; 99232; 99233; 99285; A9270-GY; J1650; J1885; J2270; J2543; J3370; J3490; J7030; J7040; J7050; P9016; Q9967

== ENCOUNTER 2023-01-19 09:09 | Inpatient (IN) | payer MEDICARE ==
[2023-01-19] MEDS: Acetaminophen/HYDROcodone 325-5 MG Tab PO PRN ×2 (10:50→20:10)
[2023-01-19] MEDS ORDERED: Sennosides/Docusate Sodium 50-8.6 MG Tab PO PRN (11:19)
[2023-01-19] MEDS ORDERED: Albuterol 8 GM Inhaler INH PRN (11:19)
[2023-01-19] MEDS ORDERED: Acetaminophen 500 MG Tab PO PRN (11:19)
[2023-01-19] MEDS: Metoprolol Succinate 25 MG Tab.ER PO SCH (17:00)
[2023-01-19] MEDS: Rosuvastatin 20 MG Tab PO SCH (17:00)
[2023-01-19] MEDS: Furosemide 40 MG Tab PO SCH (17:00)
[2023-01-19] MEDS: Losartan 25 MG Tab PO SCH (17:00)
[2023-01-19] MEDS: Iron Polysaccharides Complex 150 MG Cap PO SCH (20:11)
[2023-01-19] MEDS: Formoterol/Mometasone 100-5 MCG 8.8 GM Inhaler IH SCH (20:11)
[2023-01-19] MEDS ORDERED: Lidocaine 2% HCl 6 ML Jel ONE ×2 (22:30→22:34)
[2023-01-20 06:29] LABS: HEMATOCRIT 22.6 % (38.3-50.1); HEMOGLOBIN 7.4 g/dL (12.9-17.7)
[2023-01-20] MEDS ORDERED: Sodium Chloride 0.9% 250 ML IV SCH (09:15)
[2023-01-20] MEDS: Formoterol/Mometasone 100-5 MCG 8.8 GM Inhaler IH SCH ×2 (09:28→20:48)
[2023-01-20] MEDS: Acetaminophen/HYDROcodone 325-5 MG Tab PO PRN ×3 (09:28→23:15)
[2023-01-20] MEDS: Iron Polysaccharides Complex 150 MG Cap PO SCH ×2 (09:30→20:48)
[2023-01-20] MEDS ORDERED: Furosemide 20 MG Tab PO ONE (11:00)
[2023-01-20] MEDS ORDERED: Furosemide 20 MG Tab ONE (15:18)
[2023-01-20] MEDS: Furosemide 40 MG Tab PO SCH (15:25)
[2023-01-20] MEDS: Rosuvastatin 20 MG Tab PO SCH (15:25)
[2023-01-20] MEDS: Metoprolol Succinate 25 MG Tab.ER PO SCH (15:26)
[2023-01-20] MEDS: Losartan 25 MG Tab PO SCH (15:27)
[2023-01-21 06:20] LABS: HEMATOCRIT 26.5 % (38.3-50.1); HEMOGLOBIN 8.6 g/dL (12.9-17.7)
[2023-01-21] MEDS: Formoterol/Mometasone 100-5 MCG 8.8 GM Inhaler IH SCH ×2 (08:32→20:34)
[2023-01-21] MEDS ORDERED: Albuterol 6.7 GM Inhaler INH PRN (09:07)
[2023-01-21] MEDS: Iron Polysaccharides Complex 150 MG Cap PO SCH ×2 (09:24→20:34)
[2023-01-21] MEDS: Acetaminophen/HYDROcodone 325-5 MG Tab PO PRN ×3 (09:28→22:38)
[2023-01-21] MEDS ORDERED: Sodium Chloride 0.9% 10 ML Syringe FLUSH PRN (15:35)
[2023-01-21] MEDS: Rosuvastatin 20 MG Tab PO SCH (16:23)
[2023-01-21] MEDS: Furosemide 40 MG Tab PO SCH (16:24)
[2023-01-21] MEDS: Metoprolol Succinate 25 MG Tab.ER PO SCH (16:30)
[2023-01-21] MEDS: Losartan 25 MG Tab PO SCH (16:31)
[2023-01-22] MEDS: Acetaminophen/HYDROcodone 325-5 MG Tab PO PRN ×4 (03:01→20:37)
[2023-01-22 06:46] LABS: HEMATOCRIT 24.8 % (38.3-50.1); HEMOGLOBIN 8.1 g/dL (12.9-17.7)
[2023-01-22] MEDS: Iron Polysaccharides Complex 150 MG Cap PO SCH ×2 (09:07→20:36)
[2023-01-22] MEDS: Formoterol/Mometasone 100-5 MCG 8.8 GM Inhaler IH SCH ×2 (09:07→20:36)
[2023-01-22] MEDS: Metoprolol Succinate 25 MG Tab.ER PO SCH (16:24)
[2023-01-22] MEDS: Furosemide 40 MG Tab PO SCH (16:25)
[2023-01-22] MEDS: Losartan 25 MG Tab PO SCH (16:25)
[2023-01-22] MEDS: Rosuvastatin 20 MG Tab PO SCH (16:25)
[2023-01-23] MEDS: Acetaminophen/HYDROcodone 325-5 MG Tab PO PRN ×3 (03:02→16:52)
[2023-01-23 06:40] LABS: HEMOGLOBIN 8.6 g/dL (12.9-17.7)
[2023-01-23] MEDS: Iron Polysaccharides Complex 150 MG Cap PO SCH ×2 (08:30→20:52)
[2023-01-23] MEDS: Formoterol/Mometasone 100-5 MCG 8.8 GM Inhaler IH SCH ×2 (08:30→20:52)
[2023-01-23] MEDS: Rosuvastatin 20 MG Tab PO SCH (16:33)
[2023-01-23] MEDS: Furosemide 40 MG Tab PO SCH (16:34)
[2023-01-23] MEDS: Metoprolol Succinate 25 MG Tab.ER PO SCH (16:34)
[2023-01-23] MEDS: Losartan 25 MG Tab PO SCH (16:48)
[2023-01-24 06:48] LABS: HEMATOCRIT 26.6 % (38.3-50.1); HEMOGLOBIN 8.6 g/dL (12.9-17.7)
[2023-01-24] MEDS: Iron Polysaccharides Complex 150 MG Cap PO SCH ×2 (08:37→20:48)
[2023-01-24] MEDS: Formoterol/Mometasone 100-5 MCG 8.8 GM Inhaler IH SCH ×2 (08:37→20:47)
[2023-01-24] MEDS: Acetaminophen/HYDROcodone 325-5 MG Tab PO PRN ×3 (08:44→23:57)
[2023-01-24] MEDS: Furosemide 40 MG Tab PO SCH (16:13)
[2023-01-24] MEDS: Losartan 25 MG Tab PO SCH (16:13)
[2023-01-24] MEDS: Metoprolol Succinate 25 MG Tab.ER PO SCH (16:13)
[2023-01-24] MEDS: Rosuvastatin 20 MG Tab PO SCH (16:13)
[2023-01-25] MEDS: Acetaminophen/HYDROcodone 325-5 MG Tab PO PRN ×2 (04:58→10:17)
[2023-01-25] MEDS: Formoterol/Mometasone 100-5 MCG 8.8 GM Inhaler IH SCH (09:12)
[2023-01-25] MEDS: Iron Polysaccharides Complex 150 MG Cap PO SCH (09:12)
== END 2023-01-25 10:25 | DRG 560 ==
LOC: FB.MS 10:47
PROVIDERS: ADMIT Family Medicine; ATTEND Family Medicine
DX: S42.202D Unspecified fracture of upper end of left humerus, subsequent encounter for fracture with routine healing (principal); J44.1 Chronic obstructive pulmonary disease with (acute) exacerbation; L03.119 Cellulitis of unspecified part of limb; S72.115D Nondisplaced fracture of greater trochanter of left femur, subsequent encounter for closed fracture with routine healing; R31.0 Gross hematuria; I87.2 Venous insufficiency (chronic) (peripheral); Z66 Do not resuscitate; D64.89 Other specified anemias; N20.0 Calculus of kidney; Z79.899 Other long term (current) drug therapy; Z95.5 Presence of coronary angioplasty implant and graft; Z98.890 Other specified postprocedural states; Z87.891 Personal history of nicotine dependence; Z98.49 Cataract extraction status, unspecified eye; Z90.89 Acquired absence of other organs; Z87.442 Personal history of urinary calculi; Z11.52 Encounter for screening for COVID-19
CPT/HCPCS: 36415; 36430; 51702; 73502-LT; 73721-LT; 85014; 85018; 86850; 86900; 86901; 86920; 86922; 97110-GP; 97530-GO; 97530-GP; 97535-GO; 99305; 99309; 99315; A9270-GY; J3490; J7050; P9016; U0002